=== PATIENT | female | born 1965 | race Caucasian/White ===

== ENCOUNTER → 2016-12-18 | Outpatient (CLI) | payer OTHER ==
[~2016-12-18] MED LIST: EFFEXOR PO; IBUP200T2 PO; MULTTAB4 PO; PERC5TAB PO
--- NOTE | 2016-12-18 11:55 | REPMRS ---
Patient History The patient states she had a clinical breast exam in Patient is postmenopausal. No known family history of cancer. Took hormonal contraceptives for 5 years. Digital Woman Screen Mammo: December 18, 2016 - Exam #: [id number] Bilateral CC and MLO view(s) were taken. Technologist: Brenna Plummer, Technologist Prior study comparison: November 19, 2015, digital woman screen mammo performed at [facility]. November 15, 2014, bilateral digital mammo screening bilat, performed at [facility]. November 14, 2013, bilateral bilat screen digital mammo, performed at [facility] ([facility] FINDINGS: There are scattered fibroglandular densities. There has been no change in the appearance of the mammogram from the prior studies. There is a mild amount of scattered fibroglandular density which is fairly symmetric. There is no interval development of dominant mass, architectural distortion, or clustered microcalcification suggestive of malignancy. ASSESSMENT: BI-RADS/ACR category 1 mammogram. Negative. Recommendation Routine screening mammogram in 1 year (for women over age 40). This mammogram was interpreted with the aid of an FDA-approved computer-aided dectection system. Electronically Signed By: Lars Astorga MD 12/18/16 [id number]
== END ==
LOC: M WHC 10:40
PROVIDERS: ATTEND Nurse Practitioner Family
DX: Z12.31 Encounter for screening mammogram for malignant neoplasm of breast (principal)

== ENCOUNTER → 2016-12-18 | Outpatient (REF) | payer OTHER ==
[2016-12-18 11:48] LABS: ALBUMIN 3.9 GM/DL (3.2-5.2); ALBUMIN/GLOBULIN RATIO 1.08 (1.00-1.93); ALKALINE PHOSPHATASE 96 U/L (45-117); ALT/SGPT 29 U/L (12-78); ANION GAP 8 MEQ/L (8-16); AST/SGOT 17 U/L (15-37); BILIRUBIN,TOTAL 0.3 MG/DL (0.2-1.0); BLOOD UREA NITROGEN 11 MG/DL (7-18); CALCIUM LEVEL 9.1 MG/DL (8.5-10.1); CARBON DIOXIDE LEVEL 30 MEQ/L (21-32); CHLORIDE LEVEL 105 MEQ/L (98-107); CHOLESTEROL LEVEL 166 MG/DL (<200); CREATININE FOR GFR 0.63 MG/DL (0.55-1.02); FREE T4 0.94 NG/DL (0.76-1.46); GLOMERULAR FILTRATION RATE > 60.0 (>51); GLUCOSE, FASTING 98 MG/DL (70-105); POTASSIUM SERUM 4.3 MEQ/L (3.5-5.1); SODIUM LEVEL 143 MEQ/L (136-145); TOTAL PROTEIN 7.5 GM/DL (6.4-8.2); TRIGLYCERIDES LEVEL 132 MG/DL (<150)
== END ==
LOC: M SFHCCLAY 07:15
PROVIDERS: ATTEND Family Medicine
DX: E78.2 Mixed hyperlipidemia (principal); E07.9 Disorder of thyroid, unspecified

== ENCOUNTER → 2017-07-13 | Outpatient (REF) | payer OTHER ==
[2017-07-13 12:53] LABS: ALBUMIN 3.8 GM/DL (3.2-5.2); ALBUMIN/GLOBULIN RATIO 1.12 (1.00-1.93); ALKALINE PHOSPHATASE 90 U/L (45-117); ALT/SGPT 40 U/L (12-78); ANION GAP 7 MEQ/L (8-16); AST/SGOT 22 U/L (15-37); BILIRUBIN,TOTAL 0.4 MG/DL (0.2-1.0); BLOOD UREA NITROGEN 10 MG/DL (7-18); CALCIUM LEVEL 8.8 MG/DL (8.5-10.1); CARBON DIOXIDE LEVEL 29 MEQ/L (21-32); CHLORIDE LEVEL 103 MEQ/L (98-107); CHOLESTEROL LEVEL 144 MG/DL (<200); CREATININE FOR GFR 0.66 MG/DL (0.55-1.02); FREE T4 0.95 NG/DL (0.76-1.46); GLOMERULAR FILTRATION RATE > 60.0 (>51); GLUCOSE, FASTING 106 MG/DL (70-105); POTASSIUM SERUM 3.9 MEQ/L (3.5-5.1); SODIUM LEVEL 139 MEQ/L (136-145); TOTAL PROTEIN 7.2 GM/DL (6.4-8.2); TRIGLYCERIDES LEVEL 132 MG/DL (<150)
== END ==
LOC: M SFHCCLAY 07:04
PROVIDERS: ATTEND Family Medicine
DX: E78.2 Mixed hyperlipidemia (principal); E07.9 Disorder of thyroid, unspecified

== ENCOUNTER → 2018-06-09 | Outpatient (REF) | payer OTHER ==
[2018-06-11 14:57] LABS: HPV HYBRID CAPTURE II Negative (Negative)
== END ==
LOC: M SFHCWAGY 14:44
DX: Z12.72 Encounter for screening for malignant neoplasm of vagina (principal)

== ENCOUNTER → 2018-06-09 | Outpatient (CLI) | payer OTHER | LOC: M WHC 14:23 | DX: Z12.31 Encounter for screening mammogram for malignant neoplasm of breast (principal) | CPT/HCPCS: 77067 ==

== ENCOUNTER → 2018-08-26 | Outpatient (REF) | payer OTHER ==
[2018-08-26 12:50] LABS: ALBUMIN/GLOBULIN RATIO 1.18 (1.00-1.93); ALKALINE PHOSPHATASE 92 U/L (45-117); ALT/SGPT 29 U/L (12-78); ANION GAP 3 MEQ/L (8-16); AST/SGOT 13 U/L (7-37); BILIRUBIN,TOTAL 0.4 MG/DL (0.2-1.0); BLOOD UREA NITROGEN 12 MG/DL (7-18); CALCIUM LEVEL 9.2 MG/DL (8.5-10.1); CARBON DIOXIDE LEVEL 32 MEQ/L (21-32); CHLORIDE LEVEL 102 MEQ/L (98-107); CHOLESTEROL LEVEL 251 MG/DL (<200); CHOLESTEROL RISK RATIO 5.704 (<5); CREATININE FOR GFR 0.57 MG/DL (0.55-1.30); FREE T4 0.89 NG/DL (0.76-1.46); GLOMERULAR FILTRATION RATE > 60.0 (>51); GLUCOSE, FASTING 96 MG/DL (70-100); HDL CHOLESTEROL 44 MG/DL (>40); LDL CHOLESTEROL 173 MG/DL (<100); NON-HDL-C 207 MG/DL; POTASSIUM SERUM 4.2 MEQ/L (3.5-5.1); SODIUM LEVEL 137 MEQ/L (136-145); TOTAL PROTEIN 7.4 GM/DL (6.4-8.2); TRIGLYCERIDES LEVEL 170 MG/DL (<150)
== END ==
LOC: M SFHCCLAY 09:34
DX: E78.2 Mixed hyperlipidemia (principal); E07.9 Disorder of thyroid, unspecified

== ENCOUNTER → 2019-04-18 | Outpatient (REF) | payer OTHER ==
[2019-04-18 11:50] LABS: BASO # 0.1 10^3/uL (0.0-0.2); BASO % 1.1 % (0.0-1.0); EOS # 0.3 10^3/uL (0.0-0.50); EOS % 5.5 % (0.0-3.0); HEMATOCRIT 44.3 % (36.0-47.0); HEMOGLOBIN 14.6 g/dl (12.0-15.5); LYMPH # 1.7 10^3/uL (1.5-4.5); LYMPH % 37.9 % (24.0-44.0); MEAN CORPUSCULAR HEMOGLOBIN 27.1 pg (27.0-33.0); MEAN CORPUSCULAR VOLUME 82.2 fl (80.0-96.0); MONO # 0.4 10^3/uL (0.0-0.8); MONO % 8.6 % (0.0-5.0); NEUTROPHILS # 2.1 10^3/uL (1.8-7.7); NEUTROPHILS % 46.5 % (36.0-66.0); PLATELET COUNT, AUTOMATED 200 10^3/uL (150-450); RED BLOOD COUNT 5.39 10^6/uL (4.00-5.40); WHITE BLOOD COUNT 4.5 10^3/uL (4.0-10.0)
[2019-04-18 12:00] LABS: ALBUMIN 3.8 GM/DL (3.2-5.2); ALT/SGPT 34 U/L (12-78); BILIRUBIN,TOTAL 0.4 MG/DL (0.2-1.0); BLOOD UREA NITROGEN 13 MG/DL (7-18); CALCIUM LEVEL 8.2 MG/DL (8.5-10.1); CARBON DIOXIDE LEVEL 29 MEQ/L (21-32); CHLORIDE LEVEL 106 MEQ/L (98-107); CHOLESTEROL LEVEL 149 MG/DL (<200); CHOLESTEROL RISK RATIO 3.311 (<5); CREATININE FOR GFR 0.67 MG/DL (0.55-1.30); FREE T4 0.77 NG/DL (0.76-1.46); GLOMERULAR FILTRATION RATE > 60.0 (>51); GLUCOSE, FASTING 112 MG/DL (70-100); HDL CHOLESTEROL 45 MG/DL (>40); LDL CHOLESTEROL 76 MG/DL (<100); NON-HDL-C 104 MG/DL; POTASSIUM SERUM 3.7 MEQ/L (3.5-5.1); SODIUM LEVEL 140 MEQ/L (136-145); TOTAL PROTEIN 6.9 GM/DL (6.4-8.2); TRIGLYCERIDES LEVEL 142 MG/DL (<150)
== END ==
LOC: M SFHCCLAY 07:16
PROVIDERS: ATTEND Nurse Practitioner Family
DX: E78.49 Other hyperlipidemia (principal); F32.9 Major depressive disorder, single episode, unspecified

== ENCOUNTER → 2019-04-19 | Outpatient (CLI) | payer OTHER ==
--- NOTE | 2019-04-19 16:14 | REP ---
Clinical: Left hip pain. Technique: Neutral and frog lateral views of the left hip. Findings: No significant degenerative changes are appreciated. Examination appears relatively age-appropriate. No acute fracture or dislocation. Impression: Age-appropriate left hip radiographs.
== END ==
LOC: M CLY 15:49
PROVIDERS: ATTEND Nurse Practitioner Family
DX: M25.552 Pain in left hip (principal)

== ENCOUNTER → 2019-06-10 | Outpatient (CLI) | payer OTHER ==
--- NOTE | 2019-06-10 14:22 | REPMRS ---
Patient History The patient states she had a clinical breast exam in 05/2019. Family history of breast cancer in paternal aunt. Took hormonal contraceptives for 5 years. 3D TOMOSYNTHESIS WAS PERFORMED. [facility] for breast cancer is 13.6%. Digital Woman Screen Mammo: June 10, 2019 - Exam #: [id number] Bilateral CC and MLO view(s) were taken. Technologist: Phuong Johnson, Technologist Prior study comparison: June 09, 2018, bilateral digital woman screen mammo performed at [facility]. December 18, 2016, digital woman screen mammo performed at [facility]. FINDINGS: There are scattered fibroglandular densities. There has been no change in the appearance of the mammogram from the prior studies. There is a mild amount of residual fibroglandular tissue which is fairly symmetric. There is no interval development of dominant mass, architectural distortion, or clustered microcalcification suggestive of malignancy. Assessment: BI-RADS/ACR category 1 mammogram. Negative Mammogram. Recommendation Routine screening mammogram in 1 year (for women over age 40). This mammogram was interpreted with the aid of an FDA-approved computer-aided dectection system. Electronically Signed By: Sudhir Almaraz MD 06/10/19 [id number]
== END ==
LOC: M WHC 13:14
PROVIDERS: ATTEND Nurse Practitioner Family
DX: Z12.31 Encounter for screening mammogram for malignant neoplasm of breast (principal); Z92.0 Personal history of contraception

== ENCOUNTER → 2020-02-20 | Outpatient (REF) | payer OTHER ==
[2020-02-20 12:48] LABS: BASO # 0.1 10^3/uL (0.0-0.2); BASO % 1.1 % (0.0-1.0); EOS # 0.2 10^3/uL (0.0-0.5); EOS % 4.5 % (0.0-3.0); HEMATOCRIT 46.2 % (36.0-47.0); HEMOGLOBIN 14.7 g/dl (12.0-15.5); LYMPH # 1.8 10^3/uL (1.5-5.0); MEAN CORPUSCULAR HEMOGLOBIN 26.7 pg (27.0-33.0); MEAN CORPUSCULAR HGB CONC 31.8 g/dl (32.0-36.5); MONO # 0.5 10^3/uL (0.0-0.8); MONO % 8.4 % (0.0-5.0); NEUTROPHILS # 2.8 10^3/uL (1.5-8.5); NEUTROPHILS % 51.4 % (36.0-66.0); PLATELET COUNT, AUTOMATED 211 10^3/uL (150-450); WHITE BLOOD COUNT 5.4 10^3/uL (4.0-10.0)
[2020-02-20 13:18] LABS: ALT/SGPT 37 U/L (12-78); BILIRUBIN,TOTAL 0.4 MG/DL (0.2-1.0); BLOOD UREA NITROGEN 10 MG/DL (7-18); CALCIUM LEVEL 9.8 MG/DL (8.5-10.1); CARBON DIOXIDE LEVEL 29 MEQ/L (21-32); CHLORIDE LEVEL 104 MEQ/L (98-107); CHOLESTEROL LEVEL 150 MG/DL (<200); CREATININE FOR GFR 0.74 MG/DL (0.55-1.30); GLOMERULAR FILTRATION RATE > 60.0 (>51); GLUCOSE, FASTING 113 MG/DL (70-100); HDL CHOLESTEROL 47 MG/DL (>40); POTASSIUM SERUM 4.2 MEQ/L (3.5-5.1); SODIUM LEVEL 139 MEQ/L (136-145); TRIGLYCERIDES LEVEL 104 MG/DL (<150)
[2020-02-20 13:19] LABS: ALBUMIN 3.9 GM/DL (3.2-5.2); CHOLESTEROL RISK RATIO 3.191 (<5); FREE T4 1.08 NG/DL (0.76-1.46); LDL CHOLESTEROL 82 MG/DL (<100); NON-HDL-C 103 MG/DL; TOTAL PROTEIN 7.3 GM/DL (6.4-8.2)
== END ==
LOC: M SFHCCLAY 08:04
PROVIDERS: ATTEND Nurse Practitioner Family
DX: E78.49 Other hyperlipidemia (principal); F32.9 Major depressive disorder, single episode, unspecified

== ENCOUNTER → 2020-08-01 | Outpatient (REF) | payer OTHER ==
[2020-08-01 12:39] LABS: ALT/SGPT 37 U/L (12-78); BILIRUBIN,TOTAL 0.4 MG/DL (0.2-1.0); BLOOD UREA NITROGEN 12 MG/DL (7-18); CALCIUM LEVEL 9.3 MG/DL (8.5-10.1); CARBON DIOXIDE LEVEL 30 MEQ/L (21-32); CHLORIDE LEVEL 105 MEQ/L (98-107); CREATININE FOR GFR 0.65 MG/DL (0.55-1.30); GLOMERULAR FILTRATION RATE > 60.0 (>51); GLUCOSE, FASTING 108 MG/DL (70-100); POTASSIUM SERUM 4.2 MEQ/L (3.5-5.1); SODIUM LEVEL 140 MEQ/L (136-145); TOTAL PROTEIN 7.3 GM/DL (6.4-8.2)
[2020-08-01 13:05] LABS: HEMOGLOBIN A1c 5.3 %
== END ==
LOC: M SFHCCLAY 07:20
PROVIDERS: ATTEND Nurse Practitioner Family
DX: R73.01 Impaired fasting glucose (principal)

== ENCOUNTER → 2020-08-28 | Outpatient (CLI) | payer OTHER ==
--- NOTE | 2020-08-28 15:19 | REPMRS ---
Patient History The patient states she has not had a clinical breast exam in over a year. Family history of breast cancer in paternal aunt. Took hormonal contraceptives for 5 years. Digital Woman Screen Mammo: August 28, 2020 - Exam #: [id number] Bilateral CC and MLO view(s) were taken. Technologist: Aliyah Chappell, Technologist Prior study comparison: June 10, 2019, bilateral digital woman screen mammo performed at [facility]. June 09, 2018, bilateral digital woman screen mammo performed at [facility]. December 18, 2016, digital woman screen mammo performed at [facility]. FINDINGS: There are scattered fibroglandular densities. The Volpara volumetric breast density category is:B. There has been no change in the appearance of the mammogram from the prior studies. There is a mild amount of scattered fibroglandular density which is fairly symmetric. There is no interval development of dominant mass, architectural distortion, or grouped microcalcification suggestive of malignancy. 3-D tomosynthesis shows no additional findings. Assessment: BI-RADS/ACR category 1 mammogram. Negative Mammogram. Recommendation Routine screening mammogram of both breasts in 1 year (for women over age 40). This patient's Lifetime Breast Cancer Risk is estimated at 13.3 %. This mammogram was interpreted with the aid of an FDA-approved computer-aided dectection system. Electronically Signed By: Lars Astorga MD 08/28/20 [id number]
== END ==
LOC: M WHC 14:08
PROVIDERS: ATTEND Nurse Practitioner Family
DX: Z12.31 Encounter for screening mammogram for malignant neoplasm of breast (principal); Z80.3 Family history of malignant neoplasm of breast

== ENCOUNTER → 2020-11-28 | Outpatient (REF) | payer OTHER | LOC: M SFHCCLAY 11:37 | PROVIDERS: ATTEND Nurse Practitioner Family | DX: Z01.419 Encounter for gynecological examination (general) (routine) without abnormal findings (principal) ==

== ENCOUNTER → 2020-11-28 | Outpatient (CLI) | payer OTHER ==
--- NOTE | 2020-11-28 09:13 | REP ---
INDICATION: R09.89, CHEST CONGESTION COMPARISON: None. TECHNIQUE: PA and lateral. FINDINGS: The mediastinum and cardiac silhouette are normal. The lung remy are clear and without acute consolidation, effusion, or pneumothorax. The skeletal structures are intact and Sánchez becky is identified. IMPRESSION: No acute cardiopulmonary process. <Electronically signed by Trevor Hannon > 11/28/20 [id number]
== END ==
LOC: M CLY 08:41
PROVIDERS: ATTEND Nurse Practitioner Family
DX: R09.89 Other specified symptoms and signs involving the circulatory and respiratory systems (principal)

== ENCOUNTER → 2021-08-02 | Outpatient (REF) | payer OTHER ==
[2021-08-02 12:15] LABS: BASO # 0.1 10^3/uL (0.0-0.2); BASO % 1.1 % (0.0-1.0); EOS # 0.2 10^3/uL (0.0-0.5); HEMATOCRIT 44.2 % (36.0-47.0); HEMOGLOBIN 14.5 g/dl (12.0-15.5); LYMPH # 1.8 10^3/uL (1.5-5.0); LYMPH % 32.4 % (24.0-44.0); MEAN CORPUSCULAR HEMOGLOBIN 27.9 pg (27.0-33.0); MEAN CORPUSCULAR HGB CONC 32.8 g/dl (32.0-36.5); MEAN CORPUSCULAR VOLUME 85.2 fl (80.0-96.0); MONO # 0.5 10^3/uL (0.0-0.8); MONO % 8.5 % (2.0-8.0); NEUTROPHILS # 2.9 10^3/uL (1.5-8.5); NEUTROPHILS % 53.6 % (36.0-66.0); PLATELET COUNT, AUTOMATED 182 10^3/uL (150-450); RED BLOOD COUNT 5.19 10^6/uL (4.00-5.40); WHITE BLOOD COUNT 5.4 10^3/uL (4.0-10.0)
[2021-08-02 12:50] LABS: ALBUMIN 3.8 GM/DL (3.2-5.2); ALT/SGPT 33 U/L (12-78); BILIRUBIN,TOTAL 0.5 MG/DL (0.2-1.0); BLOOD UREA NITROGEN 12 MG/DL (7-18); CALCIUM LEVEL 9.2 MG/DL (8.5-10.1); CARBON DIOXIDE LEVEL 30 MEQ/L (21-32); CHLORIDE LEVEL 107 MEQ/L (98-107); CHOLESTEROL LEVEL 149 MG/DL (<200); CHOLESTEROL RISK RATIO 3.386 (<5); CREATININE FOR GFR 0.66 MG/DL (0.55-1.30); GLOMERULAR FILTRATION RATE > 60.0 (>51); GLUCOSE, FASTING 115 MG/DL (70-100); HDL CHOLESTEROL 44 MG/DL (>40); LDL CHOLESTEROL 75 MG/DL (<100); NON-HDL-C 105 MG/DL; POTASSIUM SERUM 3.9 MEQ/L (3.5-5.1); SODIUM LEVEL 139 MEQ/L (136-145); TOTAL PROTEIN 6.9 GM/DL (6.4-8.2); TRIGLYCERIDES LEVEL 148 MG/DL (<150)
[2021-08-02 13:23] LABS: HEMOGLOBIN A1c 5.2 %
== END ==
LOC: M SFHCCLAY 07:00
PROVIDERS: ATTEND Nurse Practitioner Family
DX: E78.49 Other hyperlipidemia (principal); F32.9 Major depressive disorder, single episode, unspecified; R73.01 Impaired fasting glucose

== ENCOUNTER → 2021-08-22 | Outpatient (CLI) | payer OTHER ==
--- NOTE | 2021-08-22 15:45 | REPMRS ---
Patient History The patient states she had a clinical breast exam in June 2021. Family history of breast cancer in paternal aunt. Took hormonal contraceptives for 5 years. Patient states no breast complaints today. Patient has signed MRS History Sheet. Digital Woman Screen Mammo: August 22, 2021 - Exam #: [id number] Bilateral CC and MLO view(s) were taken. Technologist: Christina King, Technologist Prior study comparison: August 28, 2020, bilateral digital woman screen mammo performed at [facility]. June 10, 2019, bilateral digital woman screen mammo performed at [facility] [place]. FINDINGS: There are scattered fibroglandular densities. Screening. Digital screening (2D) mammography was performed bilaterally in the CC and MLO projections. Additionally, breast tomosynthesis (3D mammography) was performed bilaterally in the CC and MLO projections. Todays exam was compared to the prior exam/exams. By history, the patient has no complaints of a palpable breast abnormality or other significant breast complaints. The breasts are unchanged in size and shape. There are no emily-soft tissue densities or spiculated masses. There is no internal architectural distortion. There are no suspicious emily-calcific clusters. Skin thickening or nipple retraction is not present. IMPRESSION: BI-RADS Category 2- Benign Findings. There is no evidence of malignant alteration of the breasts. Followup examination recommended in one year. The Volpara volumetric breast density category is B, there are scattered areas of fibroglandular densities. This mammogram was read with the assistance of [employer] Guest,an FDA approved computer aided detection system for mammography. The lifetime Tyrer-Cuzick score is 13 % Negative x-ray reports should not delay surgical consultation if a dominant or clinically suspicious mass is present. Not all breast cancers can be identified by mammography. Therefore, we recommend that you continue to perform regular breast self-examination and physical examination and then promptly contact your physician of any concerns or changes. Adenosis and dense breasts may obscure an underlying neoplasm. Assessment: BI-RADS/ACR category 2 mammogram. Benign Findings. Recommendation Routine screening mammogram of both breasts in 1 year. Electronically Signed By: Asa Odom DO 08/22/21 [id number]
== END ==
LOC: M WHC 14:44
PROVIDERS: ATTEND Nurse Practitioner Family
DX: Z12.31 Encounter for screening mammogram for malignant neoplasm of breast (principal); Z80.3 Family history of malignant neoplasm of breast

== ENCOUNTER → 2021-09-25 | Outpatient (REF) | payer OTHER | LOC: M SFHCCLAY 09:57 | PROVIDERS: ATTEND Nurse Practitioner Family | DX: R09.81 Nasal congestion (principal) ==

== ENCOUNTER → 2022-07-30 | Outpatient (REF) | payer OTHER ==
[2022-07-30 18:32] LABS: BASO # 0.1 10^3/uL (0.0-0.2); BASO % 0.9 % (0.0-1.0); EOS # 0.2 10^3/uL (0.0-0.5); EOS % 3.2 % (0.0-3.0); HEMATOCRIT 44.9 % (36.0-47.0); HEMOGLOBIN 14.5 g/dl (12.0-15.5); LYMPH # 1.7 10^3/uL (1.5-5.0); LYMPH % 23.1 % (24.0-44.0); MEAN CORPUSCULAR HEMOGLOBIN 27.4 pg (27.0-33.0); MEAN CORPUSCULAR HGB CONC 32.3 g/dl (32.0-36.5); MEAN CORPUSCULAR VOLUME 84.7 fl (80.0-96.0); MONO # 0.5 10^3/uL (0.0-0.8); MONO % 6.9 % (2.0-8.0); NEUTROPHILS # 4.9 10^3/uL (1.5-8.5); NEUTROPHILS % 65.4 % (36.0-66.0); PLATELET COUNT, AUTOMATED 239 10^3/uL (150-450); WHITE BLOOD COUNT 7.5 10^3/uL (4.0-10.0)
[2022-07-30 18:52] LABS: HEMOGLOBIN A1c 5.4 %
[2022-07-30 19:14] LABS: ALBUMIN 4.2 GM/DL (3.2-5.2); ALT/SGPT 31 U/L (12-78); BILIRUBIN,TOTAL 0.5 MG/DL (0.2-1.0); BLOOD UREA NITROGEN 11 MG/DL (7-18); CALCIUM LEVEL 9.2 MG/DL (8.5-10.1); CARBON DIOXIDE LEVEL 33 MEQ/L (21-32); CHLORIDE LEVEL 103 MEQ/L (98-107); CHOLESTEROL LEVEL 142 MG/DL (<200); CHOLESTEROL RISK RATIO 3.155 (<5); CREATININE FOR GFR 0.73 MG/DL (0.55-1.30); FREE T4 0.94 NG/DL (0.76-1.46); GLOMERULAR FILTRATION RATE > 60.0 (>51); GLUCOSE, FASTING 99 MG/DL (70-100); HDL CHOLESTEROL 45 MG/DL (>40); LDL CHOLESTEROL 72 MG/DL (<100); NON-HDL-C 97 MG/DL; POTASSIUM SERUM 3.8 MEQ/L (3.5-5.1); SODIUM LEVEL 139 MEQ/L (136-145); TOTAL PROTEIN 7.3 GM/DL (6.4-8.2); TRIGLYCERIDES LEVEL 126 MG/DL (<150)
[2022-07-30 19:23] LABS: CREATININE, URINE 47.4 MG/DL; MALB URINE SIEMENS 5.5 MG/L; MAU/CREAT RATIO 11.6 MCG/MG (0.0-30.0)
== END ==
LOC: M SFHCCLAY 13:28
PROVIDERS: ATTEND Nurse Practitioner Family
DX: E78.2 Mixed hyperlipidemia (principal); E07.9 Disorder of thyroid, unspecified; E66.9 Obesity, unspecified

== ENCOUNTER → 2023-05-05 | Outpatient (CLI) | payer OTHER | LOC: M WHC 15:30 | PROVIDERS: ATTEND Nurse Practitioner Family | DX: Z12.31 Encounter for screening mammogram for malignant neoplasm of breast (principal); R92.8 Other abnormal and inconclusive findings on diagnostic imaging of breast ==

== ENCOUNTER → 2023-05-20 | Outpatient (CLI) | payer OTHER | LOC: M WHC 08:29 | PROVIDERS: ATTEND Nurse Practitioner Family | DX: Z12.31 Encounter for screening mammogram for malignant neoplasm of breast (principal) | CPT/HCPCS: 77065; G0279 ==

== ENCOUNTER → 2023-11-03 | Outpatient (REF) | payer OTHER ==
[2023-11-04 12:30] LABS: APPEARANCE, URINE CLEAR (CLEAR); BACTERIA, URINE AUTO NEGATIVE (NEGATIVE); BILIRUBIN, URINE AUTO NEGATIVE (NEGATIVE); BLOOD, URINE BLOOD 1+ (NEGATIVE); COLOR, URINE STRAW (YELLOW); GLUCOSE, URINE (UA) AUTO NEGATIVE (NEGATIVE); KETONE, URINE AUTO NEGATIVE (NEGATIVE); LEUKOCYTE ESTERASE, URINE AUTO NEGATIVE (NEGATIVE); NITRITE, URINE AUTO NEGATIVE (NEGATIVE); PROTEIN, URINE AUTO NEGATIVE (NEGATIVE); RBC, URINE AUTO 0 /HPF (0-3); SPECIFIC GRAVITY URINE AUTO 1.005 (1.002-1.035); SQUAMOUS EPITHELIAL CELL UR AU 0 /HPF (0-6); UROBILINOGEN, URINE AUTO 0.2 mg/dL (0.0-2.0); WBC, URINE AUTO 0 /HPF (0-3)
== END ==
LOC: M LABDRAWC 11:38
PROVIDERS: ATTEND Nurse Practitioner Family
DX: R30.0 Dysuria (principal)

== ENCOUNTER → 2023-11-18 | Outpatient (CLI) | payer OTHER | LOC: M RAD 11:55 | PROVIDERS: ATTEND Nurse Practitioner Family | DX: R31.9 Hematuria, unspecified (principal) ==

== ENCOUNTER → 2024-07-01 | Outpatient (CLI) | payer OTHER | LOC: M WHC 16:05 | PROVIDERS: ATTEND Nurse Practitioner Family | DX: Z12.31 Encounter for screening mammogram for malignant neoplasm of breast (principal) ==

== ENCOUNTER → 2024-07-28 | Outpatient (REF) | payer OTHER ==
[2024-07-28 18:54] LABS: ALBUMIN 4.1 G/DL (3.2-5.2); ALKALINE PHOSPHATASE 100 U/L (46-116); ALT/SGPT 31 U/L (7.0-40); AST/SGOT 16 U/L (<34); BASO # 0.1 10^3/uL (0.0-0.2); BASO % 1.3 % (0.0-1.0); BILIRUBIN,TOTAL 0.6 MG/DL (0.3-1.2); BLOOD UREA NITROGEN 12 MG/DL (9-23); CALCIUM LEVEL 9.7 MG/DL (8.3-10.6); CARBON DIOXIDE LEVEL 31 MMOL/L (20-31); CHLORIDE LEVEL 104 MMOL/L (98-107); CHOLESTEROL LEVEL 145 MG/DL (<200); CHOLESTEROL RISK RATIO 3.57 (<5); CREATININE FOR GFR 0.63 MG/DL (0.55-1.30); EOS # 0.3 10^3/uL (0.0-0.5); EOS % 4.5 % (0.0-3.0); GLOMERULAR FILTRATION RATE > 60.0 (>45); GLUCOSE, FASTING 79 MG/DL (74-106); HDL CHOLESTEROL 40.6 MG/DL (>40); HEMATOCRIT 45.8 % (36.0-47.0); HEMOGLOBIN 15.1 g/dl (12.0-15.5); LDL CHOLESTEROL 74.4 MG/DL (<100); LYMPH % 31.3 % (24.0-44.0); MEAN CORPUSCULAR HEMOGLOBIN 28.2 pg (27.0-33.0); MEAN CORPUSCULAR VOLUME 85.6 fl (80.0-96.0); MONO # 0.5 10^3/uL (0.0-0.8); MONO % 7.7 % (2.0-8.0); NEUTROPHILS # 3.4 10^3/uL (1.5-8.5); NEUTROPHILS % 54.6 % (36.0-66.0); NON-HDL-C 104.4 MG/DL; PLATELET COUNT, AUTOMATED 225 10^3/uL (150-450); POTASSIUM SERUM 3.7 MMOL/L (3.5-5.1); RED BLOOD COUNT 5.35 10^6/uL (4.00-5.40); SODIUM LEVEL 138 MMOL/L (136-145); TOTAL PROTEIN 7.4 G/DL (5.7-8.2); TRIGLYCERIDES LEVEL 150 MG/DL (<150); WHITE BLOOD COUNT 6.3 10^3/uL (4.0-10.0)
[2024-07-28 18:56] LABS: FREE T4 1.22 NG/DL (0.89-1.76); THYROID STIMULATING HORMONE 2.263 uIU/ML (0.55-4.78)
[2024-07-28 19:42] LABS: HEMOGLOBIN A1c 5.1 % (4.0-6.0)
== END ==
LOC: M SFHCCLAY 10:41
PROVIDERS: ATTEND Nurse Practitioner Family
DX: E78.2 Mixed hyperlipidemia (principal); E07.9 Disorder of thyroid, unspecified; E66.9 Obesity, unspecified

== ENCOUNTER → 2025-07-11 | Outpatient (CLI) | payer OTHER | LOC: M WHC 11:58 | PROVIDERS: ATTEND Nurse Practitioner Family | DX: Z12.31 Encounter for screening mammogram for malignant neoplasm of breast (principal) ==

== ENCOUNTER → 2025-09-27 | Outpatient (CLI) | payer OTHER | LOC: M CLY 13:27 | PROVIDERS: ATTEND Nurse Practitioner Family | DX: R09.81 Nasal congestion (principal) ==